=== PATIENT | male | born 1995 | race Two or more races ===

== ENCOUNTER 2019-05-22 09:12 | Emergency (ER) | payer MEDICAID, OTHER ==
[~2019-05-22] VITALS: Ht 180.3 cm; Wt 74.8 kg
[2019-05-22 12:39] LABS: Basophils # (auto) 0 uL; Basophils % (auto) 0.3 % (0.0-2.0); Eosinophils # (auto) 0.1 uL; Eosinophils % (auto) 1.5 % (0.0-7.0); Hematocrit 42.1 % (41.0-53.0); Hemoglobin 14.2 g/dL (13.5-17.5); Lymphocytes # (auto) 1.6 uL; Lymphocytes % (auto) 16.5 % (10.0-50.0); Mean Corpuscular Hemoglobin 30.6 pg (28.0-32.0); Mean Corpuscular Hgb Conc. 33.9 g/dL (32.0-36.0); Mean Corpuscular Volume 90.4 fL (80.0-100.0); Monocytes # (auto) 1.2 uL; Monocytes % (auto) 12.8 % (0.0-12.0); Neutrophils # (auto) 6.6 uL; Neutrophils % (auto) 68.9 % (37.0-80.0); Nucleated Red Blood Cells % 0.1 %; Platelet Count (auto) 218 10^3/uL (140-450); Red Blood Cells 4.65 10^6/uL (4.5-5.90); Red Cell Distribution Width 13.8 % (11.8-14.3); White Blood Cell 9.6 10^3/uL (4.4-10.8)
[2019-05-22 13:02] LABS: Albumin 3.6 g/dL (3.4-5.0); Anion Gap 3 (5-15); Blood Alcohol < 3.0 mg/dL (0-5); Blood Urea Nitrogen 9 mg/dL (7-18); Calcium 8.1 mg/dL (8.5-10.1); Carbon Dioxide 27 mmol/L (21-32); Chloride 110 mmol/L (98-107); Glucose 89 mg/dL (74-106); Magnesium 2.4 mg/dL (1.6-2.6); Potassium 4.1 mmol/L (3.5-5.1); Sodium 140 mmol/L (136-145)
[2019-05-22 13:05] LABS: Alanine Aminotransferase 268 U/L (16-61); Alkaline Phosphatase 113 U/L (45-117); Aspartate Aminotransferase 158 U/L (15-37); BUN/Creatinine Ratio 11.3; Bilirubin, Total 0.3 mg/dL (0.2-1.0); GFR African American 151 mL/min; GFR Non-African American 125 mL/min; Total Protein 6.9 g/dL (6.4-8.2)
[2019-05-22] MEDS ORDERED: PHENobarbital SODIUM INJ 260 MG in SODIUM CHL 0.9% 100 ML IV ONE (14:45)
[2019-05-22] MEDS ORDERED: SODIUM CHLORIDE 0.9% 1,000 ML IV SCH (17:43)
[2019-05-22] MEDS ORDERED: NITROGLYCERIN 0.4 MG SL TAB SL PRN (17:45)
[2019-05-22] MEDS ORDERED: MORPHINE SULF INJ 2 MG/ML SYRINGE 1ML IV PRN (17:45)
[2019-05-22] MEDS ORDERED: traMADol HCL 50 MG TAB PO PRN (17:45)
[2019-05-22] MEDS ORDERED: ACETAMINOPHEN 500 MG TAB PO PRN (17:45)
[2019-05-22] MEDS ORDERED: LACTULOSE 20Gm/30ML SOLN PO PRN (17:45)
[2019-05-22] MEDS ORDERED: PROMETHAZINE HCL 25 MG/ML 1ML IV PRN (17:45)
[2019-05-22] MEDS ORDERED: TEMAZEPAM 15 MG CAP PO PRN (17:45)
[2019-05-22] MEDS ORDERED: LEVETIRACETAM 500 MG TAB PO ONE (17:45)
[2019-05-22 18:11] VITALS: BP 120/72
[2019-05-22] MEDS ORDERED: LEVETIRACETAM 500 MG TAB PO SCH (22:00)
[2019-05-23] MEDS ORDERED: ENOXAPARIN SOD 40 MG/0.4 ML SYRINGE SC SCH (10:00)
== END 2019-05-22 18:43 | disposition other institution (70) ==
LOC: EDBD 09:12 → ER 09:18 → TELE 09:19 → UNDOADMIN 09:19 → ER 18:43
DX: R56.9 Unspecified convulsions (principal); Z91.14 Patient's other noncompliance with medication regimen; F17.210 Nicotine dependence, cigarettes, uncomplicated
CPT/HCPCS: 36415; 70450; 71045; 80053; 80184; 80320; 83735; 85025; 96365; 96366; 99284; J2560

== ENCOUNTER 2019-06-01 12:55 | Emergency (ER) | payer MEDICAID ==
[~2019-06-01] VITALS: Ht 180.3 cm; Wt 66.7 kg
[2019-06-01] MEDS ORDERED: SODIUM CHLORIDE 0.9% 1,000 ML IVB ONE (13:23)
[2019-06-01] MEDS ORDERED: LORazepam 2MG/ML-1ML VIAL IV ONE (13:30)
[2019-06-01] MEDS ORDERED: LEVETIRACETAM INJ 1,000 MG in D5W 5% 100 ML IV ONE (13:30)
[2019-06-01 13:47] LABS: Basophils # (auto) 0.1 uL; Basophils % (auto) 0.9 % (0.0-2.0); Eosinophils # (auto) 0.2 uL; Eosinophils % (auto) 1.9 % (0.0-7.0); Hematocrit 48.2 % (41.0-53.0); Hemoglobin 16.4 g/dL (13.5-17.5); Lymphocytes % (auto) 24.2 % (10.0-50.0); Mean Corpuscular Hemoglobin 30.1 pg (28.0-32.0); Mean Corpuscular Volume 88.7 fL (80.0-100.0); Monocytes # (auto) 1.1 uL; Monocytes % (auto) 9.3 % (0.0-12.0); Neutrophils # (auto) 7.8 uL; Neutrophils % (auto) 63.7 % (37.0-80.0); Nucleated Red Blood Cells % 0.2 %; Platelet Count (auto) 331 10^3/uL (140-450); Red Blood Cells 5.43 10^6/uL (4.5-5.90); Red Cell Distribution Width 13.5 % (11.8-14.3); White Blood Cell 12.2 10^3/uL (4.4-10.8)
[2019-06-01 14:07] LABS: Albumin 4.3 g/dL (3.4-5.0); Calcium 8.8 mg/dL (8.5-10.1); Potassium 3.7 mmol/L (3.5-5.1)
[2019-06-01 14:10] LABS: BUN/Creatinine Ratio 15.1; Bilirubin, Total 0.4 mg/dL (0.2-1.0); Total Protein 8.4 g/dL (6.4-8.2)
[2019-06-01 14:23] VITALS: BP 121/67
== END 2019-06-01 15:03 | disposition home or self-care (01) ==
LOC: ER 12:56
DX: R10.84 Generalized abdominal pain (principal); R56.9 Unspecified convulsions; F17.210 Nicotine dependence, cigarettes, uncomplicated; F12.10 Cannabis abuse, uncomplicated; F15.10 Other stimulant abuse, uncomplicated
CPT/HCPCS: 36415; 74176; 80053; 83690; 85025; 96361; 96365; 96375; 99284; J1953; J2060; J7060

== ENCOUNTER 2021-01-30 11:15 | Emergency (ER) | payer MEDICAID ==
[~2021-01-30] VITALS: Ht 180.3 cm; Wt 72.6 kg
[2021-01-30 12:39] VITALS: BP 120/88
== END 2021-01-30 13:13 | disposition home or self-care (01) ==
LOC: ER 11:15
DX: R56.9 Unspecified convulsions (principal); F17.210 Nicotine dependence, cigarettes, uncomplicated; F12.10 Cannabis abuse, uncomplicated; Z76.0 Encounter for issue of repeat prescription